=== PATIENT | female | born 1950 | race Caucasian/White ===

== ENCOUNTER 2016-05-17 09:31 | Emergency (ER) | payer BC ==
[2016-05-17 10:19] VITALS: BP 139/81
--- NOTE | 2016-05-17 11:06 | UC ---
Upper Extremity HPI - HPI Summary HPI Summary: 65 patient presents complaining of right wrist pain after tripping and falling on an outstretched hand while at dog training. Patient states the floor was matted. She has been unable to move her wrist since it happened last night around 6 pm 05/16/16. Patient admits to some bruising and minor swelling. She denies any other injuries, hitting her head or LOC. She is able to move all of her fingers and denies numbness and tingling. She denies her hand feeling cold. She has motor strength of her hand but she does experience pain. She admits to some radiation throughout her wrist and at her distal arm upon certain movements. She has been taking Ibuprofen for pain and swelling every 4 hours. Last dose was around 7am this morning. She states it does give her some relief. She also had a friend that is an EMT apply a KT bandage that helps give support and has been icing the area. - History of Current Complaint Chief Complaint: UCUpperExtremity Stated Complaint: RIGHT WRIST INJURY Time Seen by Provider: 05/17/16 10:43 Hx Obtained From: Patient Onset/Duration: Sudden Onset Severity Initially: Mild Severity Currently: Moderate Pain Intensity: 5 Pain Scale Used: 0-10 Numeric Location Of Pain: Is Discrete @ - right anterior/posterior radial side of wrist with some radiation up distal forearm and Character: Sharp, Aching, Stiffness Aggravating Factor(s): Movement, Lifting, Flexion, Extension, Internal/External Rotation, Abduction Alleviating Factor(s): Elevation, Ice, OTC Meds, Rest Associated Signs And Symptoms: Positive: Swelling, Bruising, Weakness. Negative : Redness, Numbness/Tingling Related History: Dominant Hand Right - Allergies/Home Medications Allergies/Adverse Reactions: Allergies Allergy/AdvReac Type Severity Reaction Status Date / Time No Known Allergies Allergy Verified 05/17/16 10:19 Home Medications: Home Medications NK [No Home Medications Reported] 05/17/16 [History Confirmed 05/17/16] PMH/Surg Hx/FS Hx/Imm Hx Previously Healthy: Yes - Surgical History Surgical History: None - Family History Known Family History: Positive: None - Social History Alcohol Use: Weekly Substance Use Type: None Smoking Status (MU): Never Smoked Tobacco Review of Systems Constitutional: Negative Skin: Negative Eyes: Negative ENT: Negative Respiratory: Negative Cardiovascular: Negative Gastrointestinal: Negative Genitourinary: Negative Motor: Decreased ROM - right wrist, Weakness Neurovascular: Negative Musculoskeletal: Arthralgia - right wrist, Decreased ROM, Myalgia Neurological: Negative Psychological: Negative All Other Systems Reviewed And Are Negative: Yes Physical Exam Triage Information Reviewed: Yes Appearance: Well-Appearing, No Pain Distress, Well-Nourished Vital Signs: Initial Vital Signs Temp 97.9 F 05/17/16 10:15 Pulse 68 05/17/16 10:15 Resp 16 05/17/16 10:15 BP 139/81 05/17/16 10:15 Pulse Ox 100 05/17/16 10:15 Vital Signs Reviewed: Yes Eyes: Positive: Conjunctiva Clear ENT: Positive: Hearing grossly normal Neck: Positive: Supple, Nontender Respiratory: Positive: Chest non-tender, Lungs clear, Normal breath sounds, No respiratory distress Cardiovascular: Positive: RRR, No Murmur, Pulses Normal - 3+ radial pulses both before and after splint application, Brisk Capillary Refill - <2 seconds bilateral upper extremities Abdominal Exam: Normal Musculoskeletal: Positive: Strength Limited @ - Right Wrist, ROM Limited @ - right wrist with all movements due to pain. strength 3/5 at right wrist due to pain. right and left hand/digits full ROM and strength. cap refill <2 seconds. sensation intact, skin intact. no crepitus, deformity or step-off noted. Ecchymosis and mild swelling around right distal forearm and right wrist noted. , Edema @ Neurological Exam: Normal Psychological Exam: Normal Skin: Positive: Other - ecchymosis noted at right wrist and right distal forearm Procedures - Splinting Location: right forearm, wrist Hand-Made Type: orthoglass Splint: sugar-tong Pre-Proc Neuro Vasc Exam: normal Post-Proc Neuro Vasc Exam: normal Diagnostics - Radiology right wrist x-ray Xray Interpretation: Positive (See Comments) Radiology Interpretation Completed By: Radiologist - PROBABLE MINIMALLY DISPLACED FRACTURE OF THE DISTAL RADIAL METAPHYSIS Upper Extremity Course/Dx - Course Course Of Treatment: Right wrist x-ray obtained. Positive for minimally displaced fracture of the distal radial metaphysis. Sugar tong splint was applied. Both circulation and sensation were intact before and after splint application. Given 200mg of Ibuprofen in office. Continue taking Ibuprofen at home, rest and elevate. Was told to call Ortho to make an appointment today. - Differential Dx/Diagnosis Differential Diagnosis/HQI/PQRI: Arthritis, Contusion, Fracture (Closed), Hematoma, Strain, Sprain Provider Diagnoses: MINIMALLY DISPLACED FRACTURE OF THE DISTAL RADIAL METAPHYSIS - Physician Notification/Consults Discussed Patient Care With: Dr Tripathi Discharge - Discharge Plan Condition: Stable Disposition: HOME Patient Education Materials: Wrist Fracture in Adults (ED) Referrals: Regi Negrete MD [Primary Care Provider] - Joseph Padilla MD [Medical Doctor] - Additional Instructions: Please call to make an appointment with Orthopedics for further evaluation. Do not get the splint wet. You may continue using Ibuprofen for pain and swelling. If the splint becomes to tight, you feel numbness/tingling, cold/blue fingers, please return to immediately to have it adjusted.
[2016-05-17] MEDS ORDERED: Ibuprofen TAB* 200 MG PO ONE (11:14)
--- NOTE | 2016-05-17 11:33 | RAD ---
HISTORY: Right wrist pain, fall on outstretched hand COMPARISONS: December 30, 2008 VIEWS: 2, Frontal and lateral views of the right wrist FINDINGS: Evaluation is limited by artifact overlying the right wrist. BONE DENSITY: There is diffuse osteopenia. BONES: There is a bone fragment along the dorsal aspect of the distal radius and lateral view suggestive of a minimally displaced fracture of the distal radial metaphysis. JOINTS: There is no arthropathy. ALIGNMENT: There is no dislocation. SOFT TISSUES: Unremarkable. OTHER FINDINGS: None. IMPRESSION: PROBABLE MINIMALLY DISPLACED FRACTURE OF THE DISTAL RADIAL METAPHYSIS
[2016-05-17] MEDS ORDERED: Mineral Oil Sterile, TOPICAL* 25 ML BTL ONE (11:56)
== END 2016-05-17 12:39 | disposition home or self-care (01) ==
LOC: UCCORT 09:31
DX: S52.501A Unspecified fracture of the lower end of right radius, initial encounter for closed fracture (principal); S60.211A Contusion of right wrist, initial encounter; S50.11XA Contusion of right forearm, initial encounter; W01.0XXA Fall on same level from slipping, tripping and stumbling without subsequent striking against object, initial encounter; Y93.89 Activity, other specified; Y92.9 Unspecified place or not applicable
CPT/HCPCS: 99202; A9270-GY; G0463